=== PATIENT | female | born 1960 | race Asian ===

== ENCOUNTER 2023-12-04 09:11 | Emergency (ER) | payer OTHER, SELFPAY ==
[2023-12-04 09:42] VITALS: BP 131/83
[2023-12-04 10:27] VITALS: BMI 28.2
--- NOTE | 2023-12-04 10:55 | ED.GENMED ---
History of Present Illness
General
Chief Complaint: Musculo-Skeletal Complaint
Source: patient
Exam Limitations: none
Time Seen by Provider: 12/04/23 10:29
Nursing documentation reviewed up to this point in time: agreed with
History of Present Illness
History of Present Illness:
pti s a 63 y/o R hand dominant F
fall while playing tennis this morning 9 am
landed on L elbow and wrist and did hit head without LOC or dazed feeling
has pain in the L wrist
worse with movement
abrasion to L elbow but no pain with elbow movement
no shoulder pain, denies neck pain, no dizziness, nauesa, vomiting, confusion, weakness
nothing taken for pain
Past History
Past History
ED Past Medical History: HTN and Psychiatric
Social History
Tobacco: Non-smoker
Alcohol: None
Review of Systems
Review of Systems
Allergies reviewed?: Yes
All Other Systems: Not applicable
Phy Exam
Physical Exam
Physical Exam:
GENERAL: Alert , in no apparent distress
HEAD: NCAT
no lumps, nontender
NECK: no midline tenderness, active ROM intact, no paraspinal muscle tenderness;
EYE: pupils equal and reactive, EOMs intact.
ENT: o/p clr, mmm. no hemotympanum
CARDIAC: Regular rate and rhythm, no edema
LUNGS: Clear breath sounds bilaterally, no acute respiratory distress, no wheezes/rales/rhonchi
ABDOMEN: Soft, without focal tenderness, no r/g, no cvat
NEUROLOGICAL: Alert and oriented, no focal neuro deficits, CN intact, 5/5 strength, sensation intact
SKIN: Warm and dry, superficial abrasion L elbow, no bleeding
MUSCULOSKELETAL: left wrist swelling, tendneress, limited painful ROM
hand and fingers normal sensation nontnener
able to flex and extend elbow without pain, no tenderness to medial and lateral epicondyles, no tendenress to olecranon
PSYCH: Normal and appropriate interaction.
Course
Orders/Labs/Results
Orders:
Orders
12/04/23 09:48
Wrist, Left 3 Views CR [CR Wrist - Left Min 3 Views] Urgent
Comment:
Reason For Exam: pain injury
12/04/23 10:55
Acetaminophen [Tylenol] 650 mg PO NOW STA
Ibuprofen [Motrin] 600 mg PO NOW STA
Vital Signs
Initial and Last Documented VS:
Initial Vital Signs
Temp Pulse Resp BP Pulse Ox
98.6 F 74 16 131/83 95
12/04/23 09:42 12/04/23 09:42 12/04/23 09:42 12/04/23 09:42 12/04/23 09:42
Last Documented Vital Signs
Temp Pulse Resp BP Pulse Ox
98.6 F 74 16 131/83 95
12/04/23 09:42 12/04/23 09:42 12/04/23 09:42 12/04/23 09:42 12/04/23 09:42
MDM/Problems Addressed
Differential Diagnosis Includes:
wrist fracture, abrasion
MDM/Problems Addressed:
63 y/o F right hand dominant with L wrist pain after mechanical slip an dflal
hit head without LOC, no thinners, no vomiting, no confusion
on exam head normal
neuro intact
left wrist tenderness and swelling, limited ROM
no elbow tenderness
xrays indep reviewed comminuted distal intraarticular L radial fx
? ulnar styloid fx
will immobilize in a sugar tong and sling
*Critical Care Note
Total Time (30-74mins, 75-104mins- exclusive of procedures): Not Applicable
ED Attending Note
-
Portions of this chart may have been created with voice recognition software.� Occasional wrong word or��sound alike� substitutions may have occurred due to the inherent limitations of voice recognition software.
Discharge Plan
Departure
Patient Disposition: Home (Routine Discharge)
Date of Disposition: 12/04/23
Time of Disposition: 11:12
Patient with high blood pressure during this ER visit?: No
Condition: Fair
Covid-19: Not Applicable
Discharge Problem:
Fracture of wrist, closed
Instructions: Wrist Fracture (DC)
Prescriptions:
No Action
penicillin V potassium 500 MG tablet
500 mg PO QID Qty: 40 0RF
oxycodone-acetaminophen 5 MG/325 MG tablet
1 - 2 tab PO .Q4-6HPRN PRN (Reason: pain) Qty: 20 0RF
Referrals:
Vicenta Linares PA-C [Family Provider] -
Eduardo Espinoza MD [Active] - Follow up in 5-7 days ([facility]TH[facility])
Activity Restrictions/Additional Instructions:
YOU SHOULD KEEP THE SPLINT ON, DO NOT GET IT WET
ICE OFF AND ON NEEDED ON TOP OF THE SPLINT
USE THE SLING WHLIE AWAKE
TYLENOL AND MOTRIN FOR PAIN
ELEVATE THE ARM
CALL ORTHOPEDICS WEDNESDAY TO SCHEDULE APPT NEXT WEEK FOR WRIST FRACTURE (INTRAARTICULAR DISTAL RADIUS FRACTURE)
RETURN FO RANY COCNERNS, VOMITING, CONFUSION, HEADACHE, WEAKNESS, ETC
Interventions
Interventions:
*Risk Screen - Suicide Last Done: 12/04/23 10:27
*Neglect/Abuse Screening Last Done: 12/04/23 10:27
ED- Fall Risk Assessment Last Done: 12/04/23 10:28
*ED COVID-19 Vaccine History Last Done: 12/04/23 10:27
*Nursing Disposition Last Done: 12/04/23 11:56
ED-Musculoskeletal Assessment Last Done: 12/04/23 10:27
Discharge Date and Time
Discharge Date/Time: 12/04/23 11:56
Print Language: ITALIAN
[2023-12-04] MEDS: TYLENOL 650 MG PO (11:05)
[2023-12-04] MEDS: MOTRIN 600 MG PO (11:05)
== END 2023-12-04 11:56 | disposition home or self-care (01) ==
LOC: EMR 09:11
PROVIDERS: EMERGENCY PHYSICIAN Emergency Medicine; FAMILY PHYSICIAN Physician Assistant Medical
DX: S52.572A Other intraarticular fracture of lower end of left radius, initial encounter for closed fracture (principal); W19.XXXA Unspecified fall, initial encounter
CPT/HCPCS: 99283; 29125; 73110

== ENCOUNTER → 2024-06-06 14:29 | Outpatient (REF) | payer OTHER, SELFPAY | LOC: WDC 14:29 | PROVIDERS: ATTENDING PHYSICIAN Physician Assistant Medical | DX: Z00.00 Encounter for general adult medical examination without abnormal findings (principal); Z12.31 Encounter for screening mammogram for malignant neoplasm of breast | CPT/HCPCS: 77063; 77067 ==

== ENCOUNTER → 2025-03-06 13:26 | Outpatient (REF) | payer OTHER, SELFPAY | LOC: HWRAD 13:26 | PROVIDERS: ATTENDING PHYSICIAN Physician Assistant Medical | DX: M25.551 Pain in right hip (principal); M25.552 Pain in left hip | CPT/HCPCS: 73522 ==

== ENCOUNTER → 2025-03-21 06:54 | Outpatient (REF) | payer OTHER, SELFPAY | LOC: HWRAD 06:54 | PROVIDERS: ATTENDING PHYSICIAN Physician Assistant Medical | DX: Z00.00 Encounter for general adult medical examination without abnormal findings (principal) | CPT/HCPCS: 77080 ==